=== PATIENT | female | born 1985 | race Caucasian/White ===

== ENCOUNTER 2021-07-14 18:49 | Emergency (ER) | payer BC ==
[~2021-07-14] VITALS: Ht 165.1 cm; Wt 54.9 kg
== END 2021-07-14 22:27 | disposition home or self-care (01) ==
LOC: ER 18:49
DX: O26.891 Other specified pregnancy related conditions, first trimester (principal); Z3A.01 Less than 8 weeks gestation of pregnancy; R10.2 Pelvic and perineal pain